=== PATIENT | female | born 1980 | race Caucasian/White ===

== ENCOUNTER 2016-12-17 01:12 | Emergency (ER) | payer BC ==
[~2016-12-17] VITALS: Ht 167.6 cm; Wt 86.3 kg
[~2016-12-17 01:12] MED LIST: Motrin PO; Percocet 5/325,Endoc PO
[2016-12-17 02:10] LABS: HEMATOCRIT 42.3 % (36.0-46.0); MCH 28.5 PG (29.0-34.0); MCV 81.5 FL (83-99); MEAN PLAT.VOLUME 11.3 uM^3 (9.5-12.4); PLATELET COUNT 208 K/uL (156-360); RBC DIS.WIDTH-SD 38.2 % (39-53); RED BLOOD COUNT 5.19 M/uL (3.80-5.20); WHITE BLOOD COUNT 15.7 K/uL (4.1-10.2)
[2016-12-17 02:24] LABS: CHLORIDE 103 mEq/L (99-109); POTASSIUM 4.1 mEq/L (3.7-5.4); SODIUM 137 mEq/L (136-147)
[2016-12-17 02:26] LABS: GLUCOSE 176 mg/dL (70-99)
[2016-12-17 02:28] LABS: ANION GAP 12 MEQ/L (2-14); TOTAL BILIRUBIN 0.7 mg/dL (0.0-1.0)
[2016-12-17 02:30] LABS: ALKALINE PHOSPHATASE 73 IU/L (3-129); GFR ESTIMATE (CALCULATED) 54 mL/min/
[2016-12-17 02:31] LABS: UREA NITROGEN (BUN) 16 mg/dL (9-23)
[2016-12-17 02:41] LABS: QUANTITATIVE HCG < 4.0 MIU/ML
[2016-12-17 03:12] LABS: ADD MIUA? YES; BILIRUBIN NEGATIVE; BLOOD NEGATIVE; COLOR AMBER ((YELLOW)); GLUCOSE (STRIP) NEGATIVE; KETONES 5; LEUKOCYTES NEGATIVE; NITRITE NEGATIVE; PROTEIN (STRIP) 100; SPECIFIC GRAVITY 1.029 (1.000-1.030); UROBILINOGEN 0.2 MG/DL (0.2-1.0)
[2016-12-17 03:17] LABS: BACTERIA 1+ /HPF; EPITHELIAL CELLS RARE /HPF; HYALINE CASTS 0-5 /LPF; MUCUS TRACE /LPF; RED BLOOD CELLS 0-5 /HPF (0-5); UCUL ADDED? NO; WHITE BLOOD CELLS 0-5 /HPF (0-5)
[2016-12-17] MEDS ORDERED: ZOFRAN ODT4 MG PO (04:33)
[2016-12-17 04:54] VITALS: BP 109/74
== END 2016-12-17 04:55 | disposition home or self-care (01) ==
LOC: EME 01:12
DX: R11.2 Nausea with vomiting, unspecified (principal); E86.0 Dehydration; I95.1 Orthostatic hypotension; R19.7 Diarrhea, unspecified
CPT/HCPCS: 80053; 81003; 84702; 85027; 99281; 99284; J2405